=== PATIENT | male | born 1990 | race Caucasian/White ===

== ENCOUNTER 2017-02-25 17:51 | Outpatient (CLI) | payer MEDICAID ==
--- NOTE | 2017-02-26 08:10 | Magnetic Resonance Report ---
MRI OF THE BRAIN WITHOUT CONTRAST: HISTORY: Seizure PROCEDURE: Multiplanar, multisequence MR imaging of the brain without IV contrast was performed. FINDINGS: No comparison exam at this facility. Diffuse, advanced volume loss is evident for this patient's age. Volume loss is most impressive in the posterior fossa. There is thinning of the corpus callosum and mild ex vacuo dilatation of the ventricular system but no hydrocephalus. A right frontal ventricular shunt terminates in the right frontal horn. Minimal nonspecific periventricular white matter changes are noted. No evidence for acute ischemia, hemorrhage or mass. No chronic infarct or extra-axial fluid collection. The midline structures are central. The basal cisterns are patent. The orbital cavities and sella turcica demonstrate no abnormality. The visualized paranasal sinuses and mastoid air cells are well aerated. IMPRESSION: No acute intracranial process. Advanced volume loss for this patient's age as described.
== END 2017-02-25 17:52 | disposition home or self-care (01) ==
LOC: MRI 17:51
PROVIDERS: ATTEND Psychiatry & Neurology Neurology
DX: G40.409 Other generalized epilepsy and epileptic syndromes, not intractable, without status epilepticus (principal); I51.7 Cardiomegaly; R90.82 White matter disease, unspecified
CPT/HCPCS: 70551